=== PATIENT | male | born 1945 | race Caucasian/White ===

== ENCOUNTER → 2019-11-15 | Outpatient (CLI) | payer OTHER ==
[~2019-11-15] VITALS: Ht 175.3 cm; Wt 102.1 kg
[~2019-11-15] MED LIST: ALLOPURINOL 10100 M3 PO; CELEXA 20 MG TA20 MG PO; COLCHICINE0.6 MG PO; FENOFIBRATE160 MG PO; FISH OIL 1,0001 EAC9 PO; FUROSEMIDE 40 M40 MG PO; GLUCOPHAGE1000 MG PO; LANOXIN 0.25M0.25 M1 PO; LOPRESSOR50 MG PO; MELATONIN5 MG PO; POTASSIUM20 PO; PRALUENT P75 MG/1 ML SUBQ; WARFARIN SODIUM3 MG PO; ZESTRIL20 MG PO
== END ==
LOC: LAB 08:00 → GI 11-20 09:02
PROVIDERS: ATTEND Specialist
DX: Z01.812 Encounter for preprocedural laboratory examination (principal); Z11.59 Encounter for screening for other viral diseases

== ENCOUNTER → 2019-11-20 | Outpatient (CLI) | payer OTHER ==
--- NOTE | ~2019-11-20 | P ---
[facility] [place] [address] PROCEDURE REPORT Name: SABINA WHEELER Room #: [facility] Keila#: [id number] Admission: 11/20/19 Attend Phys: Lukas Rasmussen Discharge: Date of : 47 Report #: [id number] THIS REPORT FOR: cc: Naresh Maldonado MD,Lukas Salinas MD, MD ~ CC: Naresh Bang DATE OF SERVICE: 11/20/2019 PROCEDURE PERFORMED: Colonoscopy. HISTORY OF PRESENT ILLNESS: The patient is a 74-year-old male who is here for a screening colonoscopy. Last colonoscopy was 5 years ago; however, the prep was poor in certain areas. No family history of colon cancer. Denies any symptoms other than loose stools at times. He is on metformin. DESCRIPTION OF PROCEDURE: The risks and benefits of the procedure were explained to the patient, those risks including but not limited to bleeding, perforation and the risk of sedation. He understood these risks and gave informed consent. Sedation was given using propofol per anesthesia. Next, a digital rectal exam was initially performed, which was normal. Next, using a standard Olympus colonoscope, the scope was placed in the patient's anus and advanced under direct vision to the cecum. The overall prep was good. Cecum and ileocecal valve were normal in appearance. Ascending, transverse and descending colon were normal. A few scattered diverticula were noted in the sigmoid colon, no evidence of inflammation, otherwise normal. The rectal mucosa was normal. On retroflexion, small nonbleeding internal hemorrhoids were noted. The scope was then withdrawn and the procedure terminated. The patient tolerated the procedure well. IMPRESSION: 1. Sigmoid diverticulosis. 2. Small internal hemorrhoids. 3. Otherwise, normal colonoscopy. RECOMMENDATIONS: Repeat colonoscopy in 10 years. Thank you for allowing me to participate in his care. By: 1200 [id number] Lukas Bang MD /nt
[2019-11-20 10:33] LABS: INR 1.3; PROTIME 13.7 Seconds (9.3-11.4)
== END | disposition home or self-care (01) ==
LOC: GI 09:41
PROVIDERS: Anesthesiology; ATTEND Specialist
DX: R19.7 Diarrhea, unspecified (principal); K57.30 Diverticulosis of large intestine without perforation or abscess without bleeding; K64.8 Other hemorrhoids; Z98.890 Other specified postprocedural states; Z79.899 Other long term (current) drug therapy